=== PATIENT | female | born 1990 | race Caucasian/White ===

== ENCOUNTER 2020-07-16 15:52 | Emergency (ER) | payer MEDICAID ==
--- NOTE | 2020-07-16 16:40 | NUR ---
PATIENT CALLED TO BE TRIAGE PATIENT LEFT WITHOUT BEING SEEN BY DR. SCHMITT. NO FURTHER CARE PROVIDED FOR PATIENT.
--- NOTE | 2020-07-16 16:45 | NUR ---
CALLED FOR THE SECOND TIME , NO RESPONSE
--- NOTE | 2020-07-16 16:50 | NUR ---
CALLED FOR THE THIRD TIME NO RESPONSE
== END 2020-07-16 16:40 | disposition left against medical advice (07) ==
LOC: MED 15:52
DX: Z53.21 Procedure and treatment not carried out due to patient leaving prior to being seen by health care provider (principal)